=== PATIENT | male | born 1945 | race Caucasian/White ===

== ENCOUNTER 2018-08-14 14:43 | Emergency (ER) | payer SELFPAY ==
[2018-08-14 14:49] VITALS: BMI 29.0
[2018-08-14 14:56] VITALS: RESP 18; O2SAT 95
--- NOTE | 2018-08-14 14:57 | ED PDOC ---
Arrival/HPI - General Chief Complaint: Chest Pain Time Seen by Provider: 08/14/18 14:44 Historian: Patient, Rn [employer]astics (Family translates) - History of Present Illness Time/Duration: 1 week Symptom Onset: Gradual Symptom Course: Worsening Severity Level: Moderate Activities at Onset: Rest Associated Symptoms (Text): 08/14/18 14:54 Patient complains of approximately 1 week history of a cough congestion and URI. He has had some right-sided middle back pain. Acutely this afternoon he developed some right upper quadrant and right chest pain with radiation into his back. There is some shortness of breath. No sputum production. He has had a low-grade fever and chills. There is been some dyspnea. He vapes. No alcohol. No drugs. No medications and no known allergies. No nausea vomiting or diarrhea. No genitourinary symptoms. He has never experienced this previously. No injury or trauma. He does not appear ill or in any distress. Past Medical History - Infectious Disease Hx of Infectious Diseases: None Family/Social History - Physician Review Nursing Documentation Reviewed: Yes Family/Social History: Unknown Family HX Smoking Status: Light Smoker < 10 Cigarettes Daily Hx Alcohol Use: No Hx Substance Use: No Allergies/Home Meds Allergies/Adverse Reactions: Allergies No Known Allergies Allergy (Verified 08/14/18 14:49) Review of Systems - Physician Review All systems were reviewed & negative as marked: Yes - Review of Systems Constitutional: Fatigue, Fevers Respiratory: SOB, Cough. absent: Sputum, Wheezing Cardiovascular: Chest Pain, Syncope. absent: Palpitations Gastrointestinal: Constipation, Diarrhea, Nausea, Vomiting, Anorexia Genitourinary Male: absent: Dysuria, Hematuria Neurological: absent: Headache, Dizziness, Focal Weakness Physical Exam Temperature: Afebrile Blood Pressure: Normal Pulse: Regular Respiratory Rate: Normal Appearance: Positive for: Well-Appearing, Non-Toxic, Comfortable Pain Distress: None Mental Status: Positive for: other (Awake and alert) - Systems Exam Head: Present: Atraumatic, Normocephalic Pupils: Present: PERRL Extroacular Muscles: Present: EOMI Conjunctiva: Present: Normal Ears: Present: NORMAL TM, Normal Canal. No: Erythema, TM Bulging Mouth: Present: Moist Mucous Membranes Pharnyx: No: ERYTHEMA, EXUDATE, TONSILS ENLARGED Neck: Present: Normal Range of Motion Respiratory/Chest: Present: Decreased Breath Sounds. No: Respiratory Distress, Accessory Muscle Use, Wheezes, Rales, Retracting, Rhonchi, Tachypneic Cardiovascular: Present: Regular Rate and Rhythm, Normal S1, S2. No: Murmurs Abdomen: No: Tenderness, Distention, Peritoneal Signs, Rebound, Guarding Back: Present: Normal Inspection. No: CVA Tenderness, Midline Tenderness, Paraspinal Tenderness Upper Extremity: Present: Normal Inspection. No: Cyanosis, Edema Lower Extremity: Present: Normal Inspection. No: Edema Neurological: Present: GCS=15, CN II-XII Intact, Speech Normal, Motor Func Grossly Intact Skin: Present: Warm, Dry, Normal Color. No: Rashes Psychiatric: Present: Alert Medical Decision Making ED Course and Treatment: 08/14/18 14:57 EKG shows normal sinus rhythm rate approximately [address] changes no acute changes and no old available for comparison. 08/14/18 16:38 Procedure: Chest X-ray Dictator: Arya Braxton Impression: No active disease. 08/14/18 17:13 Workup is unremarkable including x-ray ultrasound EKG and blood work. Patient is actually feeling better. Discharged home accompanied by multiple family members to follow-up with PMD. Follow-up in the ER as needed. We will treat as bronchitis with antibiotics cough suppressant and albuterol. 08/14/18 17:25 Procedure: Abdomen Ultrasound Dictator: Matt Escobar MD Impression: No acute findings related to/accounting for the clinical presentation. Additional benign and/or incidental findings described above. - RAD Interpretation Radiology Orders: 08/14/18 14:53 CHEST PORTABLE [RAD] Stat Chest one view shows no infiltrate effusion or cardiomegaly. Ultrasound of the abdomen is read by the radiologist shows no acute findings. 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 Ulcer: No History Surgical Site Infection Following: None - Disposition Have Diagnosis and Disposition been Completed?: Yes Diagnosis: Bronchitis, Chest pain, Abdominal pain Disposition: HOME/ ROUTINE Disposition Time: 17:14 Patient Plan: Discharge Condition: GOOD Discharge Instructions (ExitCare): Chest Pain, Acute Bronchitis, Chest Pain (ED) Prescriptions: Benzonatate [Tessalon Perles] 100 mg PO Q8 #30 sgl RX: Albuterol HFA [Ventolin HFA 90 mcg/actuation (8 g)] 2 puff IH [id number] #1 puff Azithromycin [Zithromax] 250 mg PO DAILY #6 tab Referrals: PCP,NO [Primary Care Provider] - Follow up with primary Forms: [facility] (Welsh)
[2018-08-14 15:21] LABS: VENOUS BLOOD GAS PO2 55 mm/Hg (30-55); VENOUS BLOOD PH 7.36 (7.32-7.43)
[2018-08-14 15:27] LABS: BASO # 0.03 K/mm3 (0.0-2.0); BASO % 0.4 % (0.0-3.0); EOS # 0.1 (0.0-0.7); EOS % 1.4 % (1.5-5.0); LYMPH # 2.9 (1.2-3.4); LYMPH % 36.3 % (22.0-35.0); MEAN CELL VOLUME 79.9 fl (80.0-105.0); MEAN CORPUSCULAR HEMOGLOBIN 26.3 pg (25.0-35.0); MEAN CORPUSCULAR HGB CONC 32.9 g/dl (31.0-37.0); MEAN PLATELET VOLUME 9.6 fl (7.0-11.0); MONO # 0.6 (0.1-0.6); RBC 5.32 10^6/uL (3.5-6.1); RED CELL DISTRIBUTION WIDTH 14.5 % (11.5-14.5)
[2018-08-14 15:46] LABS: TROPONIN I < 0.01 ng/mL
[2018-08-14 16:05] LABS: ALB/GLOB RATIO 1.1 (1.1-1.8); ALBUMIN 4.4 g/dL (3.0-4.8); ALT/SGPT 24 U/L (7-56); AST/SGOT 30 U/L (17-59); B-TYPE NATRIURETIC PEPTIDE 74.4 pg/mL (0-450); BLOOD UREA NITROGEN 18 mg/dL (7-21); CALCIUM 9.9 mg/dL (8.4-10.5); GFR NON-AFRICAN AMERICAN > 60
--- NOTE | 2018-08-14 16:18 | RAD ---
Date of service: 08/14/2018 HISTORY: Sepsis Patient COMPARISON: No prior. FINDINGS: LUNGS: No active pulmonary disease. PLEURA: No significant pleural effusion identified, no pneumothorax apparent. CARDIOVASCULAR: No aortic atherosclerotic calcification present. Normal cardiac size. No pulmonary vascular congestion. OSSEOUS STRUCTURES: No significant abnormalities. VISUALIZED UPPER ABDOMEN: Normal. OTHER FINDINGS: None. IMPRESSION: No active disease.
--- NOTE | 2018-08-14 17:06 | US ---
Date of service: 08/14/2018 HISTORY: RUQ pain COMPARISON: None. TECHNIQUE: Sonographic evaluation of the abdomen. FINDINGS: LIVER: Measures 14.5 cm. Hepatopedal blood flow. Fatty infiltration manifest ultrasonographically as increased echogenicity of the liver parenchyma. No mass. No intrahepatic bile duct dilatation. GALLBLADDER: Status post cholecystectomy. No abnormality is seen in the gallbladder fossa. COMMON BILE DUCT: Measures 5.7 mm. No stones. No dilatation. PANCREAS: Obscured by overlying bowel gas. Non diagnostic assessment of the pancreas. RIGHT KIDNEY: Measures 4.4 x 10.8cm. Normal echogenicity. No calculus, mass, or hydronephrosis. LEFT KIDNEY: Measures 5.9 x 11.0cm. Normal echogenicity. No calculus, mass, or hydronephrosis.Incidental finding(s): Simple cyst upper pole 2.6 x 2.8 cm SPLEEN: Normal in size and contour. No mass. AORTA: No aneurysmal dilatation. IVC: Unremarkable. OTHER FINDINGS: None. IMPRESSION: No acute findings related to/ accounting for the clinical presentation. Additional benign and/or incidental findings described above.
[2018-08-14 17:25] VITALS: BP 133/94; PULSE 66; TEMP 98.6
--- NOTE | 2018-08-14 23:22 | CARD ---
APPROVED REPORT Date of service: 08/14/2018 EKG Measurement Heart [id number] <Conclusion> Normal sinus rhythm Nonspecific ST abnormality Abnormal ECG
== END 2018-08-14 17:27 | disposition home or self-care (01) ==
LOC: ED 14:43
DX: J40 Bronchitis, not specified as acute or chronic (principal); R10.11 Right upper quadrant pain; R07.9 Chest pain, unspecified